=== PATIENT | female | born 1985 | race Caucasian/White ===

== ENCOUNTER 2023-04-04 12:26 | Outpatient (CLI) | payer BC | END 2023-04-04 18:11 | disposition home or self-care (01) | LOC: SRD 12:26 | PROVIDERS: ATTEND Specialist | DX: N92.6 Irregular menstruation, unspecified (principal); N93.8 Other specified abnormal uterine and vaginal bleeding; E28.2 Polycystic ovarian syndrome | CPT/HCPCS: 74740 ==